=== PATIENT | female | born 1985 | race Caucasian/White ===

== ENCOUNTER 2021-10-05 09:31 | Emergency (ER) | payer MEDICAID ==
[~2021-10-05] VITALS: Ht 162.6 cm; Wt 77.0 kg
[~2021-10-05 09:31] MED LIST: NO HOME MEDS
[2021-10-05 09:35] VITALS: BP 97/65
--- NOTE | 2021-10-05 10:20 | NUR ---
Pt attmepted to provide urine sample but unable to give sample, [facility] Living notified and no need for SC per MD.
--- NOTE | 2021-10-05 10:55 | NUR ---
Pt to be DC'd and no need for urine sample per VO Dr. Gonzalez.
== END 2021-10-05 11:20 | disposition home or self-care (01) ==
LOC: ER 09:32
DX: S00.93XA Contusion of unspecified part of head, initial encounter (principal); R51.9 Headache, unspecified; Z72.89 Other problems related to lifestyle; Z56.0 Unemployment, unspecified; Y08.89XA Assault by other specified means, initial encounter; Y93.89 Activity, other specified; Y92.89 Other specified places as the place of occurrence of the external cause; Y99.8 Other external cause status
CPT/HCPCS: 70450; 70486; 72125; 99285

== ENCOUNTER 2023-03-14 09:33 | Emergency (ER) | payer MEDICAID ==
[~2023-03-14] VITALS: Ht 162.6 cm; Wt 110.0 kg
[2023-03-14 09:45] VITALS: BP 133/91
== END 2023-03-14 10:01 | disposition home or self-care (01) ==
LOC: ER 09:36
DX: T81.9XXA Unspecified complication of procedure, initial encounter (principal); F15.10 Other stimulant abuse, uncomplicated; F17.200 Nicotine dependence, unspecified, uncomplicated; Z56.0 Unemployment, unspecified
CPT/HCPCS: 99281

== ENCOUNTER 2023-03-17 10:14 | Emergency (ER) | payer MEDICAID ==
[~2023-03-17] VITALS: Ht 165.1 cm; Wt 86.2 kg
[2023-03-17] MEDS ORDERED: HYDR-3965 PO (11:48)
[2023-03-17] MEDS ORDERED: HYDROcodone/acetaminophen 5mg/325mg tablet PO ONE (11:50)
[2023-03-17 12:07] VITALS: BP 117/86
== END 2023-03-17 12:09 | disposition home or self-care (01) ==
LOC: ER 10:14
DX: G89.18 Other acute postprocedural pain (principal); F15.90 Other stimulant use, unspecified, uncomplicated; Z56.0 Unemployment, unspecified; Z72.89 Other problems related to lifestyle; Z98.891 History of uterine scar from previous surgery; Z79.899 Other long term (current) drug therapy
CPT/HCPCS: 99283; A6449